=== PATIENT | female | born 1985 | race Caucasian/White ===

== ENCOUNTER 2022-08-26 00:24 | Day surgery (SDC) | payer OTHER, SELFPAY ==
[2022-08-12 14:12] VITALS: BMI 31.6
--- NOTE | 2022-08-12 14:21 | PC.NURSE ---
Report to the Outpatient Waiting Room, entrance under the green pavilion located off [facility], at time 0600 on date 08/26/22. Planned Procedure Time: 0730. Time changes happen often and if your time is changed the preop area will call you the afternoon before. - You and your visitor will be asked to self-screen and do not enter if you have any COVID symptoms. - Only one visitor is requested with a max of two and NO children visitors are allowed at this time. - The patient visitor may be requested to leave or wait in car when not with patient due to distancing restrictions. - A mask is optional within the hospital. Patients may have clear liquids (water, carbonated beverages, clear teas, apple juice) until 3 hours prior to surgery with a maximum of 20 ounces. - No food from midnight until time of surgery Take the following medications with a SIP of water the morning of surgery: CYCLOBENZAPRINE, TRAMADOL IF NEEDED Medications to discontinue per physician: VITAMINS/SUPPLEMENTS Date to take last dose: 08/22/[address] FALCON ABOUT DICLOFENAC Please no make-up, nail syriac, hairspray, perfume, deodorant, or body powder the day of surgery. No jewelry (including any body piercings) or valuables the day of surgery, leave them at home. Please take a shower or bath the night before, or the morning of, surgery with an antibacterial soap. Wear comfortable, loose fitting clothing. - Jewelry must be removed prior to entering the operating room. Rings and piercings that are not removed may be cut off. - The hospital will not accept responsibility for valuables. - Please leave all valuables, including medications, at home the day of surgery. If you are going home after surgery, a licensed dray driver must drive you home. - NO public transportation without another adult if you receive anesthesia. - We recommend that an adult stay with you for 24 hours following discharge. - We also recommend that you do not drive, make important decision, drink alcoholic beverages, or take any drugs that were not prescribed by your health care provider for at least 24 hours after your discharge time. Follow any additional instructions given to you from your surgeon. If you or anyone in your household have experienced Covid symptoms in the past week, please notify your surgeon or the nurse liaison at the phone number below for possible testing. Telephone instructions given to PT Akila VILLA and asked if any additional questions and then verbalized understanding. Patient advised to call surgeon office or pre surgery nurse liaison [phone] if any additional questions.
[2022-08-26] VITALS (9 sets, daily range): BP systolic 112–127; BP diastolic 73–86; PULSE 68–90; RESP 11–16; TEMP 36–37.4; O2SAT 98–100
[2022-08-26] MEDS: KETOROLAC 15 MG/ML VIAL (*BKC) IV PUSH (07:00)
[2022-08-26] MEDS: ACETAMINOPHEN 500 MG TABLET 1000 MG PO (07:00)
[2022-08-26] MEDS: LACTATED RINGERS 1,000 ML 30 ML IV CONT ×2 (07:00→09:27)
--- NOTE | 2022-08-26 07:02 | WPDANESEPPF ---
Anes - Initial Pre Proc Eval Procedure: Operation Date: 08/26/22 07:30 Proposed Procedures p Diagnostic Laparoscopy, Laparoscopic Right Ovarian Cystectomy - Rain Escamilla MD Date/Time: 08/26/22 07:02 Surgeon: Rain Escamilla MD Pre Op Diagnosis: hemorrhagic cyst of ovaries, pelvic pain Patient Data Age: 37 Gender: F Height: 1.73 m Weight: 95.55 kg Last Vital Signs Temp 36.0 C L 08/26/22 06:52 Pulse 89 08/26/22 06:52 Resp 16 08/26/22 06:52 BP 121/84 08/26/22 06:52 Pulse Ox 99 08/26/22 06:52 O2 Del Method Room Air 08/26/22 06:52 Allergies Allergy/AdvReac Type Severity Reaction Status Date / Time No Known Allergies Allergy Verified 08/26/22 06:20 Home Medications Medication Instructions Recorded Confirmed Type amitriptyline 25 mg tablet 25 mg PO HS 08/12/22 08/26/22 History cholecalciferol (vitamin D3) 125 125 mcg PO DAILY 08/12/22 08/26/22 History mcg (5,000 unit) tablet (Vitamin D3) cyclobenzaprine 10 mg tablet 10 mg PO TID PRN Pain 08/12/22 08/26/22 History diclofenac sodium 75 mg 75 mg PO BID 08/12/22 08/26/22 History tablet,delayed release hydroxychloroquine 200 mg tablet 200 mg PO BID 08/12/22 08/26/22 History liraglutide (weight loss) 3 mg/0.5 3 mg subcut DAILY 08/12/22 08/26/22 History mL (18 mg/3 mL) subcut pen injector (Saxenda) omega 9-kaz-cxz-fish oil 1,200 mg 1 cap PO DAILY 08/12/22 08/26/22 History (144 mg-216 mg) capsule (Fish Oil) secukinumab 150 mg/mL subcutaneous 300 mg subcut MONTHLY 08/12/22 08/26/22 History syringe (Cosentyx) tramadol 50 mg tablet 50 mg PO Q8H PRN Pain 08/12/22 08/26/22 History vitamin B complex 1 cap PO DAILY 08/12/22 08/26/22 History Patient hx anesthesia problems: none Family hx anesthesia problems: none Results Review: All pre-operative results and documents have been reviewed as part of the pre-operative evaluation. [facility] Past Medical History Medical History (Updated 08/26/22 @ 07:03 by Reynaldo Pineda MD) Ankylosing spondylitis Obesity Social History Social History Smoking status: Never smoker Alcohol intake: never Substance use: current Substance use type: marijuana Other substance usage details: [employer] Living arrangements: with family Spiritual care concerns: No Anes - Eval Final PreProcedure Day of Procedure 08/26/22 07:02 Patient weight: obese Heart: regular rate and rhythm Lungs: clear to auscultation Airway: Mallampati scale class II Neurological: alert and oriented Last oral intake: >/= 8 hours ASA classification: III Emergent: no Anesthetic plan: proceed Anesthesia type and monitoring: general ETT and standard monitoring Results Review: All pre-operative results and documents have been reviewed as part of the pre-operative evaluation. Informed Consent: The patient's anesthetic plan and its attendant risks and benefits were discussed with the patient/family/POA. Questions were solicited and answers provided to the satisfaction of the patient/family/POA.
--- NOTE | 2022-08-26 07:09 | WPDHPUPDATE1 ---
History and Physical Update Update Date/Time: 08/26/22 07:09 History and Physical has been reviewed, including an updated exam of the patient. There are NO changes in the patient's condition. Risks, benefits, and alternatives have been discussed and questions answered. Patient agrees to proceed with procedure.
--- NOTE | 2022-08-26 09:25 | W.PM.PROC2 ---
Procedure Note - Detailed Date of Procedure 08/26/22 Pre-op Diagnosis hemorrhagic cyst of ovaries, pelvic pain Post-op Diagnosis Other (Endometriosis, hemoperitoneum) Procedure Performed radical resection of endometriosis Surgeon Rain Escamilla MD Anesthesia General Indications pelvic pain Findings multiple endometriosis implants in the posterior cul-de-sac. diffuse scarring of the posterior cul-de-sac, hemoperitoneum at the start of the case mild.. small endometrial implants the anterior cul-de-sac. Description of Procedure The patient was taken to the operating room. She was prepped and draped in the dorsal lithotomy position after induction general anesthesia. A 5 mm incision was made with a scalpel on the abdominal skin in the left upper quadrant of the abdomen. A 5 mm trocar was inserted into the intra-abdominal cavity under direct visualization the scope. In the same fashion a 5 mm left lower quadrant trocar was inserted and a 5 mm infraumbilical trocar was inserted. The ovaries were suspended. This was done using Carlos-Néstor Endoclose needle and 0 Vicryl. The bilateral lower quadrants were pierced with the Carlos-Néstor needle while being transilluminated. They were carrying an 0 Vicryl suture which was passed through the ovary bilaterally brought back out through the same incision/puncture site. They were held in place on the skin surface with a hemostat. A VLADIMIR manipulator was placed in the intrauterine cavity using speculum and tenaculum. It was anteflexed. This revealed the entire posterior cul-de-sac clearly. The posterior cul-de-sac peritoneum was removed completely With the exception of the deepest cul-de-sac areas which were fulgurated And the peritoneum over the rectum. From the infundibulopelvic ligament and suspensory ligament ovary laterally to the rectum medially the peritoneum was caudal cephalad dimension was from the pelvic brim down to the uterine arteries Then cervix. This was done with sharp and blunt dissection and cautery. The ureters were dissected out and isolated. Areas in the deepest posterior cul-de-sac were cauterized. There was some very mild endometriotic lesions in this area. Endometriosis cauterized in the anterior cul-de-sac 4-5 lesions that were small. Cauterized with monopolar cautery The pelvis was irrigated. Copious amounts of irrigation were used. Interceed was placed over the dissected areas bilaterally. Two pieces were used. The pneumoperitoneum was reduced. The trocars were removed. Skin was closed with subcuticular 4 micro. The patient's incisions were covered with Dermabond. She was taken recovery room in stable condition. Sponge lap and needle counts were correct x2. Estimated Blood Loss -50.0 Urine Output -200.0 Complications No immediate complications Condition Stable Disposition Same day
[2022-08-26] MEDS: oxyCODONE HCL (*CRX) 5 MG TAB IR PO (10:30)
== END 2022-08-26 11:16 | disposition home or self-care (01) ==
PROVIDERS: Visit Provider Obstetrics & Gynecology
PROC: (CPT 49320; principal; 2022-08-26 07:30)
DX: N80.329 Endometriosis of the posterior cul-de-sac, unspecified depth (principal); N80.319 Endometriosis of the anterior cul-de-sac, unspecified depth; K66.1 Hemoperitoneum; R10.2 Pelvic and perineal pain; F12.90 Cannabis use, unspecified, uncomplicated; E66.9 Obesity, unspecified; Z68.32 Body mass index [BMI] 32.0-32.9, adult
CPT/HCPCS: 58662; 88305; A9270; J1100; J1885; J2250; J2405; J2704; J2710; J3010; J7030; J7120